=== PATIENT | male | born 1965 | race African-American/Black ===

== ENCOUNTER 2021-10-30 10:04 | Emergency (ER) | payer SELFPAY ==
[~2021-10-30] VITALS: Ht 167.6 cm; Wt 140.0 kg
[2021-10-30 11:51] LABS: HEMATOCRIT. 45.9 % (42.0-52.0); HEMOGLOBIN. 15.8 g/dL (14.0-18.0); MEAN CORPUSCULAR HEMOGLOBIN 33.8 pg (28.0-32.0); MEAN CORPUSCULAR VOLUME 97.9 fL (80.0-94.0); MEAN PLATELET VOLUME 8.1 fl (7.4-10.4); PLATELET 212 x1000/uL (130-400); RED BLOOD CELL COUNT 4.69 mill/uL (4.7-6.1)
[2021-10-30 11:58] LABS: CHLORIDE 103 mEq/L (98-107)
[2021-10-30 12:22] LABS: PLATELET ESTIMATE NORMAL
[2021-10-30 13:54] VITALS: BP 171/103
== END 2021-10-30 13:58 | disposition home or self-care (01) ==
LOC: ER 10:04
DX: R07.89 Other chest pain (principal); I10 Essential (primary) hypertension; E78.00 Pure hypercholesterolemia, unspecified; Z86.73 Personal history of transient ischemic attack (TIA), and cerebral infarction without residual deficits
CPT/HCPCS: 36415; 71045; 80053; 83880; 84484; 85025; 93005; 99285

== ENCOUNTER 2022-03-12 11:13 | Emergency (ER) | payer MEDICAID ==
[~2022-03-12] VITALS: Ht 172.7 cm; Wt 105.0 kg
[2022-03-12 12:53] LABS: HEMATOCRIT. 46.1 % (42.0-52.0); HEMOGLOBIN. 15.6 g/dL (14.0-18.0); MEAN CORPUSCULAR HEMOGLOBIN 31.7 pg (28.0-32.0); MEAN CORPUSCULAR VOLUME 93.9 fL (80.0-94.0); MEAN PLATELET VOLUME 8.5 fl (7.4-10.4); PLATELET 209 x1000/uL (130-400); RED BLOOD CELL COUNT 4.91 mill/uL (4.7-6.1)
[2022-03-12 13:01] LABS: CHLORIDE 90 mEq/L (98-107)
[2022-03-12 13:05] VITALS: BP 141/84
[2022-03-12 13:24] LABS: PLATELET ESTIMATE NORMAL
[2022-03-12 13:56] LABS: CLARITY URINE TURBID (CLEAR); COLOR URINE DARK YELLOW (YELLOW); KETONES URINE 2+ (NEGATIVE); LEUKOCYTE ESTERASE URINE 2+ (NEGATIVE); NITRITE URINE POSITIVE (NEGATIVE); OCCULT BLOOD URINE 3+ (NEGATIVE); PH URINE 5.5 (4.5-8.0); PROTEIN URINE 3+ (NEGATIVE); SPECIFIC GRAVITY URINE 1.019 (1.005-1.030)
[2022-03-12] MEDS ORDERED: MECLIZINE 25MG TABLET PO ONE (14:00)
[2022-03-12] MEDS ORDERED: AMOXICILLIN/POTASSIUM CLAVULANATE 875/125MG TAB PO NR (15:00)
[2022-03-12] MEDS ORDERED: LEVOFLOXACIN 500MG PREMIX 100 ML IV ONE (16:30)
[2022-03-12] MEDS ORDERED: LEVO500T90 MT (16:38)
[2022-03-12] MEDS ORDERED: CYCL10TA21 MT (16:38)
== END 2022-03-12 14:49 | disposition home or self-care (01) ==
LOC: ER 11:13
DX: N39.0 Urinary tract infection, site not specified (principal); I10 Essential (primary) hypertension; E78.00 Pure hypercholesterolemia, unspecified; Z86.73 Personal history of transient ischemic attack (TIA), and cerebral infarction without residual deficits; Z20.822 Contact with and (suspected) exposure to COVID-19
CPT/HCPCS: 36415; 70450; 71045; 80053; 81003; 83880; 85025; 87077; 87086; 87186; 87426; 93005; 96365; 99285; C9803; J1956; J8597